=== PATIENT | female | born 1960 | race Caucasian/White ===

== ENCOUNTER 2019-03-14 00:43 | Emergency (ER) | payer OTHER ==
[~2019-03-14] VITALS: Ht 162.6 cm; Wt 68.0 kg
[2019-03-14] MEDS ORDERED: CELEXA 10 MG TA10 M1 PO (01:01)
[2019-03-14] MEDS ORDERED: ALLEGRA ALLERGY60 MG PO (01:02)
[2019-03-14 01:22] LABS: ABSOLUTE BASOPHILS 0.1 thou/uL (0.0-0.2); ABSOLUTE EOSINOPHILS 0.5 thou/uL (0.0-0.7); ABSOLUTE LYMPHOCYTES 3.7 thou/uL (0.8-5.3); ABSOLUTE MONOCYTES 0.6 thou/uL (0.0-1.2); ABSOLUTE NEUTROPHILS 6.4 thou/uL (1.6-8.1); EOSINOPHILS 4.4 %; HEMATOCRIT 39.5 % (37.0-47.0); HEMOGLOBIN 13.8 gm/dL (12.0-15.0); LYMPHOCYTES 32.2 %; MCH 30.6 pg (26.0-34.0); MCHC 34.9 g/dL (28.0-37.0); MCV 87.6 fL (80.0-100.0); MONOCYTES 5.7 %; MPV 8.2 fl. (7.2-11.1); NUCLEATED RBCS 0 /100WBC; PLATELET COUNT* 276 thou/uL (150-400); POLYS 56.7 %; RBC 4.51 mil/uL (4.20-5.00); RDW-CV 12.5 % (10.5-14.5); WBC 11.3 thou/uL (4.0-11.0)
[2019-03-14 01:26] LABS: CALCIUM 8.8 mg/dL (8.5-10.1); CREATININE 0.8 mg/dL (0.6-1.3); POTASSIUM 3.4 mmol/L (3.5-5.1)
[2019-03-14 01:37] LABS: ALBUMIN 3.8 g/dL (3.4-5.0); TOTAL BILIRUBIN 0.6 mg/dL (<0.1-1.0); TOTAL PROTEIN 7.8 g/dL (6.4-8.2)
[2019-03-14 02:16] LABS: URINE BILIRUBIN NEGATIVE (Negative); URINE BLOOD TRACE (Negative); URINE CLARITY CLEAR; URINE COLOR YELLOW; URINE GLUCOSE-RANDOM NEGATIVE (Negative); URINE KETONES NEGATIVE (Negative); URINE LEUKOCYTES-REFLEX NEGATIVE (Negative); URINE NITRITE-REFLEX NEGATIVE (Negative); URINE PROTEIN NEGATIVE (Negative); URINE UROBILINOGEN 0.2 E.U./dl (0.2-1.0)
[2019-03-14 02:27] LABS: PROTIME 10.4 Seconds (9.20-11.50)
[2019-03-14] MEDS ORDERED: TORADOL 10 MG T10 MG PO (05:15)
[2019-03-14] MEDS ORDERED: NORFLEX100 MG PO (05:15)
[2019-03-14 05:28] VITALS: BP 137/94
--- NOTE | 2019-03-16 16:19 | EKG ---
[place] [address] ELECTROCARDIOGRAM REPORT Name: CLIFTON MCLEAN Room: [facility]#: [id number] Admission: 03/14/19 Attend Phys: Discharge: 03/14/19 Date of : 58 Report #: [id number] THIS REPORT FOR: //name// [facility] ED Test Date: 2019-03-14 Test Time: 02:02:16 Pat Name: CLIFTON FRANDY ANKUR Department: Room: Gender: F [employer] Worker: : 1960 Requested By: Brandie Dawkins Order Number: [id number] MD: Charlie Del Real Measurements Intervals [place] Rate: 52 P: 82 MT: 160 QRS: 70 QRSD: 103 T: 52 QT: 470 QTc: 438 Interpretive Statements Sinus rhythm Atrial premature complex Borderline ST depression, diffuse leads No previous ECG available for comparison Electronically Signed On 03-16-2019 16:19:23 CDT by Charlie Del Real [email or web address] <ELECTRONICALLY SIGNED> By: Charlie Del Real MD, FACC 03/16/19 1619 0202 0202 Charlie Del Real MD, FACC /EPI
== END 2019-03-14 05:28 | disposition home or self-care (01) ==
LOC: M.ERS 00:43
PROVIDERS: Personal Emergency Response Attendant
DX: M54.5 Low back pain (principal); R10.2 Pelvic and perineal pain; R10.31 Right lower quadrant pain; R10.32 Left lower quadrant pain; R11.2 Nausea with vomiting, unspecified

== ENCOUNTER → 2019-03-18 | Outpatient (CLI) | payer OTHER ==
[~2019-03-18] MED LIST: ALLEGRA ALLERGY60 MG PO; CELEXA 10 MG TA10 M1 PO; HYDROCODON-ACE1 EAC7 PO; NORFLEX100 MG PO; PANTOPRAZOLE SO40 MG PO; TORADOL 10 MG T10 MG PO
== END ==
LOC: M.ULTRA 03-17 16:30
DX: R11.0 Nausea (principal); R10.11 Right upper quadrant pain; R10.2 Pelvic and perineal pain

== ENCOUNTER 2019-03-20 10:24 | Inpatient (IN) | payer OTHER ==
[~2019-03-20] VITALS: Ht 162.6 cm; Wt 68.0 kg
--- NOTE | ~2019-03-20 | PROC ---
[address] [place] [address] PROCEDURE REPORT Name: CLIFTON MCLEAN Room: [address]#: [id number] Admission: 03/20/19 Attend Phys: Landon Cazares, Discharge: 03/23/19 Date of : 58 Report #: [id number] THIS REPORT FOR: //name// For GI report, please see the Provation report in Perceptive 7 content. By: 0652Medical Records Staff KEE /TATIANA
--- NOTE | ~2019-03-20 | CON ---
[address] [address] CONSULTATION Name: CLIFTON MCLEAN Room: [address] IN .R.#: [id number] Admission: 03/20/19 Attend Phys: Landon Cazares, Discharge: Date of : 58 Report #: [id number] THIS REPORT FOR: //name// CC: Pippagulshan Grant Landon Cazares DATE OF SERVICE: 03/20/2019 CHIEF COMPLAINT: Abdominal pain. HISTORY OF PRESENT ILLNESS: This is a pleasant 58-year-old woman with a 2-week history of abdominal pain. Pain is described as sharp, stabbing, diffuse, crescendo-decrescendo type pain. Currently, she is not having any pain after getting some sleep. CT scan was performed, which demonstrated minimal smooth narrowing of the proximal superior mesenteric artery. PAST MEDICAL HISTORY: Low back pain. PAST SURGICAL HISTORY: Denies abdominal operation. SOCIAL HISTORY: No tobacco or alcohol use. ALLERGIES: NKDA. MEDICATIONS: Reviewed and listed in the chart. REVIEW OF SYSTEMS: A 12-point review of systems is negative except for what is listed above in HPI. PHYSICAL EXAMINATION: VITAL SIGNS: Temperature is 37.0, pulse 59 and blood pressure 119/56. GENERAL: She is awake, alert, in no acute distress. HEENT: Extraocular muscles intact. Sclerae without icterus. NECK: Supple. CARDIOVASCULAR: Regular rate and rhythm. CHEST: Fair movement bilaterally. ABDOMEN: Soft and nondistended. No organomegaly. EXTREMITIES: Without clubbing, cyanosis or edema. NEUROLOGIC: Grossly intact. SKIN: Without rash or jaundice. LABORATORY FINDINGS: White blood cell count 10.8 and hemoglobin 13.9. RADIOLOGIC FINDINGS: She has had a CT of the abdomen and pelvis. This was a CT angio. This demonstrates minimal narrowing of the [place] [address] CONSULTATION Name: CLIFTON MCLEAN Room: [address] IN [facility]#: [id number] Admission: 03/20/19 Attend Phys: Landon Cazares, Discharge: Date of : 58 Report #: [id number] ASSESSMENT AND PLAN: A 58-year-old woman with 2-week history of diffuse abdominal pain that comes and goes. I do not feel that the SMA narrowing is causing this pain, although it may be contributing. I will await Vascular Surgery opinion on this. If she has not had recent colonoscopy, she may benefit from colonoscopy. We will follow along with you. Thank you for asking me to take part in the care of this patient. By: 1659 Donis Tellez MD /cherrie
[~2019-03-20 10:24] MED LIST changes: -HYDROCODON-ACE1 EAC7 PO; -PANTOPRAZOLE SO40 MG PO
[2019-03-20 10:30] VITALS: BP 148/66
[2019-03-20 10:57] LABS: ABSOLUTE BASOPHILS 0.1 thou/uL (0.0-0.2); ABSOLUTE EOSINOPHILS 0.1 thou/uL (0.0-0.7); ABSOLUTE LYMPHOCYTES 2.1 thou/uL (0.8-5.3); ABSOLUTE MONOCYTES 0.4 thou/uL (0.0-1.2); ABSOLUTE NEUTROPHILS 8.1 thou/uL (1.6-8.1); BASOPHILS 0.8 %; EOSINOPHILS 0.9 %; HEMATOCRIT 39.2 % (37.0-47.0); HEMOGLOBIN 13.9 gm/dL (12.0-15.0); LYMPHOCYTES 19.5 %; MCH 31.1 pg (26.0-34.0); MCHC 35.6 g/dL (28.0-37.0); MCV 87.5 fL (80.0-100.0); MONOCYTES 3.8 %; MPV 8.3 fl. (7.2-11.1); NUCLEATED RBCS 0 /100WBC; PLATELET COUNT* 311 thou/uL (150-400); RBC 4.48 mil/uL (4.20-5.00); RDW-CV 12.6 % (10.5-14.5); WBC 10.8 thou/uL (4.0-11.0)
[2019-03-20 11:10] LABS: CALCIUM 8.8 mg/dL (8.5-10.1); POTASSIUM 3.4 mmol/L (3.5-5.1)
[2019-03-20 11:12] LABS: ALBUMIN 3.7 g/dL (3.4-5.0); TOTAL BILIRUBIN 0.9 mg/dL (<0.1-1.0); TOTAL PROTEIN 7.8 g/dL (6.4-8.2)
[2019-03-20 13:43] VITALS: BP 134/86
[2019-03-20 14:00] VITALS: BP 162/81
--- NOTE | 2019-03-20 14:38 | EKG ---
[place] [address] ELECTROCARDIOGRAM REPORT Name: CLIFTON MCLEAN Room: [address] ADM IN .R.#: [id number] Admission: 03/20/19 Attend Phys: Landon Cazares, Discharge: Date of : 58 Report #: [id number] THIS REPORT FOR: //name// [facility] ED Test Date: 2019-03-20 Test Time: 10:58:28 Pat Name: CLIFTON PASCUAL Department: Room: [facility] Gender: F Senior Engineering Technician: VALERIO : 1960 Requested By: Bo Ruiz Order Number: [id number] MD: Russell Bruno Measurements Intervals [place] Rate: 61 P: 84 CT: 149 QRS: 56 QRSD: 95 T: 25 QT: 422 QTc: 425 Interpretive Statements Sinus rhythm Borderline ST depression, lateral leads Compared to ECG 03/14/2019 02:02:16 Atrial premature complex(es) no longer present ST (T wave) deviation still present Electronically Signed On 03-20-2019 14:38:16 CDT by Russell Bruno [email or web address] <ELECTRONICALLY SIGNED> By: Russell Bruno MD, FAC 03/20/19 1438 1058 1058 Russell Bruno MD, [facility] /EPI
[2019-03-20 15:13] LABS: CALCIUM 8.4 mg/dL (8.5-10.1); CREATININE 0.9 mg/dL (0.6-1.3); MAGNESIUM 1.9 mg/dL (1.8-2.4); POTASSIUM 3.3 mmol/L (3.5-5.1)
[2019-03-20 15:22] VITALS: BP 119/56
[2019-03-20 20:00] VITALS: BP 117/63
[2019-03-21] VITALS: BP 130/64
[2019-03-21 04:00] VITALS: BP 107/64
[2019-03-21 08:00] VITALS: BP 123/62
[2019-03-21 10:20] LABS: URINE BILIRUBIN NEGATIVE (Negative); URINE BLOOD TRACE (Negative); URINE CLARITY CLEAR; URINE COLOR YELLOW; URINE GLUCOSE-RANDOM NEGATIVE (Negative); URINE KETONES NEGATIVE (Negative); URINE LEUKOCYTES-REFLEX NEGATIVE (Negative); URINE NITRITE-REFLEX NEGATIVE (Negative); URINE PROTEIN NEGATIVE (Negative); URINE UROBILINOGEN 0.2 E.U./dl (0.2-1.0)
[2019-03-21 12:29] LABS: HEMATOCRIT 33.4 % (37.0-47.0); MCH 31.2 pg (26.0-34.0); MCHC 34.9 g/dL (28.0-37.0); MCV 89.4 fL (80.0-100.0); MPV 8.7 fl. (7.2-11.1); RBC 3.73 mil/uL (4.20-5.00); RDW-CV 12.8 % (10.5-14.5); WBC 6.7 thou/uL (4.0-11.0)
[2019-03-21 12:33] LABS: HEMOGLOBIN 11.6 gm/dL (12.0-15.0)
[2019-03-21 16:32] VITALS: BP 139/70
[2019-03-21 20:00] VITALS: BP 146/62
[2019-03-22] VITALS: BP 138/69
[2019-03-22 04:00] VITALS: BP 119/68
[2019-03-22 08:00] VITALS: BP 140/68
[2019-03-22 10:30] VITALS: BP 140/68
[2019-03-22 16:07] VITALS: BP 171/78
[2019-03-22 20:00] VITALS: BP 115/63
[2019-03-23] VITALS: BP 108/55
[2019-03-23 04:00] VITALS: BP 120/69
[2019-03-23 08:00] VITALS: BP 103/65
[2019-03-23 12:30] VITALS: BP 122/61
[2019-03-23] MEDS ORDERED: PANTOPRAZOLE SO40 MG PO (14:14)
[2019-03-23] MEDS ORDERED: HYDROCODON-ACE1 EAC7 PO (14:17)
[2019-03-23 14:19] VITALS: BP 122/61
--- NOTE | 2019-03-24 15:07 | PATH ---
[address] [address] PATHOLOGY RPT PROCEDURE Name: KATIA MCLEAN Room: [address] IN ..#: [id number] Admission: 03/20/19 Date of : 58 Discharge: 03/23/19 Report #: [id number] Path Case #: [id number] [facility] Accession Number: [id number] . 01 Material submitted: . PART A: stomach - GASTRIC BIOPSY FOR H PYORI PART B: cecum - CECAL POLYP . 01 Clinical history: . None provided . 02 Diagnosis: A. Gastric biopsy: - Mild nonspecific chronic gastritis, negative for Helicobacter pylori organisms and dysplasia. . B. Cecal polyp: - Benign colonic mucosa with several hyperplastic lymphoid follicles (Peyer's patches) and suggestion of hyperplastic change, negative for dysplasia/adenomatous change. (ELGIN:estelita; 03/24/2019) . . Special stain on A: H. pylori immuno. QMS 03/24/2019 1157 Local . 02 Electronically signed: . Chris Guerrero MD, Pathologist NPI- [id number] . 01 Gross description: . A. The specimen is received in formalin, labeled "Katia Mclean, gastric biopsy for H. pylori" and consists of 3 fragments of pink-polanco tissue measuring between 0.3 x 0.2 cm and 0.4 x 0.2 cm which are entirely submitted in A1. . B. The specimen is received in formalin, labeled "Katia Mclean, cecal polyp" and consists of a fragment of polanco tissue measuring 0.8 x 0.3 x 0.1 cm which is entirely submitted in B1. (SDY; 03/23/2019) SYU/SYU 03/23/2019 1505 Local . 02 Pathologist provided ICD-10: K29.50, R10.9 . 02 CPT . 858861, 264503, S49217 Specimen Comment: A courtesy copy of this report has been sent to [phone] [place] [address] PATHOLOGY RPT PROCEDURE Name: RICHARD MCLEANRyley Lyn Room: [address] IN .R.#: [id number] Admission: 03/20/19 Date of : 58 Discharge: 03/23/19 Report #: [id number] Path Case #: [id number] Specimen Comment: Report sent to Performed at: 01 [facility] [address] [facility] [facility] [facility] [address], [place], [place] [id number] MD Kyler Porras MD Phone: [phone] Performed at: [address] [facility] [address], [place], [place] [id number] MD Chris Guerrero MD Phone: [phone]
--- NOTE | 2019-04-07 15:15 | CON ---
[address] [address] CONSULTATION Name: CLIFTON MCLEAN Room: [address]#: [id number] Admission: 03/20/19 Attend Phys: Landon Cazares, Discharge: 03/23/19 Date of : 58 Report #: [id number] THIS REPORT FOR: //name// CC: Pippa Juanita Cazares DATE OF SERVICE: 03/21/2019 HISTORY OF PRESENT ILLNESS: This is a pleasant 58-year-old female who is presenting for evaluation of abdominal pain. The patient reports the abdominal pain started about a week back. It is located in the epigastric region and radiates downwards. The patient reports the pain is severe, 10/10 in intensity, went back. She reports no specific relieving factors, but reports the pain is worse with food. She denies nausea, vomiting, diarrhea, hematemesis, hematochezia, weight loss or other alarm symptoms. The patient reports she had a CT outside hospital and she was diagnosed with ischemic colitis and recommended to get admitted to the hospital. PAST MEDICAL HISTORY: Depression. PAST SURGICAL HISTORY: The patient has a history of back surgery and diskectomy. SOCIAL HISTORY: The patient denies smoking, alcohol or recreational drug use. FAMILY HISTORY: No history of colon cancer or Simons related neoplasia. REVIEW OF SYSTEMS: Negative except for what was mentioned in the HPI. PHYSICAL EXAMINATION: GENERAL: The patient is alert, awake, and oriented x 3. HEENT: Pupils are equal, round, reactive to light and accommodation. Mucous membranes are moist. There is no congestion. LUNGS: Clear to auscultation bilaterally. CARDIOVASCULAR: Rate and rhythm regular, S1, S2 present. ABDOMEN: Soft. There is no distention, guarding or rigidity. EXTREMITIES: Warm, well perfused. There is no edema. SKIN: Warm and dry. LABORATORY DATA: Hemoglobin 11.6, hematocrit 33.4, platelet count 242, and WBC count 6.7. Sodium 139, potassium 3.6, chloride 105, bicarbonate 29, BUN 8, and creatinine 0.9. IMAGING: CT angio of abdomen and pelvis minimal smooth narrowing of the proximal SMA without significant narrowing adjacent stranding and retroperitoneal fat and possible [place] [address] CONSULTATION Name: CLIFTON MCLEAN Room: [address]#: [id number] Admission: 03/20/19 Attend Phys: Landon Cazares, Discharge: 03/23/19 Date of : 58 Report #: [id number] ASSESSMENT AND PLAN: Pleasant 58-year-old female with history outlined above, presenting for evaluation of severe abdominal pain. The patient never had an esophagogastroduodenoscopy or colonoscopy performed, therefore we will proceed with the above. Further recommendations can be based on results of these tests. The patient was seen and examined on 03/21/2019. This note reflects that day of service. <ELECTRONICALLY SIGNED> By: Jw Barajas MD 04/07/19 1515 1550 2315Jw Barajas MD /nt
== END 2019-03-23 15:30 | disposition home or self-care (01) | DRG 300 ==
LOC: M.ERS 10:24 → M.2W 12:19 → M.TBA-ER 12:19 → M.2W 13:59
PROVIDERS: Internal Medicine Gastroenterology; Physician Assistant; ADMIT Family Medicine
PROC: 0DB68ZX Excision of Stomach, Via Natural or Artificial Opening Endoscopic, Diagnostic (ICD-10-PCS; principal; 2019-03-22)
PROC: 0D798ZZ Dilation of Duodenum, Via Natural or Artificial Opening Endoscopic (ICD-10-PCS; principal; 2019-03-22)
PROC: 0DBH8ZZ Excision of Cecum, Via Natural or Artificial Opening Endoscopic (ICD-10-PCS; principal; 2019-03-22)
DX: I77.1 Stricture of artery (principal); K31.5 Obstruction of duodenum; K26.9 Duodenal ulcer, unspecified as acute or chronic, without hemorrhage or perforation; E87.6 Hypokalemia; M51.36 Other intervertebral disc degeneration, lumbar region; M53.3 Sacrococcygeal disorders, not elsewhere classified; D64.9 Anemia, unspecified; I70.0 Atherosclerosis of aorta; Z82.49 Family history of ischemic heart disease and other diseases of the circulatory system; Z79.899 Other long term (current) drug therapy

== ENCOUNTER 2019-06-19 17:33 | Emergency (ER) | payer OTHER ==
[~2019-06-19] VITALS: Ht 162.6 cm; Wt 68.0 kg
[~2019-06-19 17:33] MED LIST changes: +HYDROCODON-ACE1 EAC7 PO; +PANTOPRAZOLE SO40 MG PO
[2019-06-19] MEDS ORDERED: FLEXERIL PO (19:52)
[2019-06-19 20:09] VITALS: BP 146/66
== END 2019-06-19 20:10 | disposition home or self-care (01) ==
LOC: M.ERS 17:33
DX: S63.592A Other specified sprain of left wrist, initial encounter (principal); S16.1XXA Strain of muscle, fascia and tendon at neck level, initial encounter; M25.512 Pain in left shoulder; Z98.51 Tubal ligation status; V89.2XXA Person injured in unspecified motor-vehicle accident, traffic, initial encounter; Y93.89 Activity, other specified; Y92.89 Other specified places as the place of occurrence of the external cause; Y99.8 Other external cause status